=== PATIENT | male | born 1945 | race Caucasian/White ===

== ENCOUNTER 2020-07-19 10:10 | Emergency (ER) | payer MEDICARE, OTHER ==
[~2020-07-19] VITALS: Ht 180.3 cm; Wt 90.0 kg
[2020-07-19] MEDS ORDERED: HUMIRA40 MG/0.4 IJ (10:29)
[2020-07-19 12:25] VITALS: BP 125/77
== END 2020-07-19 12:25 | disposition home or self-care (01) ==
LOC: ED 10:10
DX: U07.1 COVID-19 (principal); K50.90 Crohn's disease, unspecified, without complications

== ENCOUNTER 2021-08-19 10:30 | Observation (INO) | payer MEDICARE, OTHER ==
[~2021-08-19] VITALS: Ht 172.7 cm; Wt 86.0 kg
[~2021-08-19 10:30] MED LIST: HUMIRA40 MG/0.4 IJ
--- NOTE | 2021-08-19 10:48 | NUR ---
PATIENT TO ROOM VIA WHEELCHAIR.
[2021-08-19] MEDS ORDERED: IRON325 M1 PO (11:10)
[2021-08-19] MEDS ORDERED: TAMSULOSIN0.4 MG PO (11:11)
[2021-08-19] MEDS ORDERED: OMEPRAZOLE20 MG PO (11:12)
[2021-08-19] MEDS ORDERED: PREDNISONE10 MG (11:17)
[2021-08-19 11:56] LABS: HEMATOCRIT 43.9 % (39.0-50.0); HEMOGLOBIN 14.1 g/dl (14.0-18.0); IMMATURE GRANULOCYTES 0.4 % (0.0-5.0); MEAN CELL VOLUME 86.6 fL CALC (80.0-100.0); MEAN CORPUSCULAR HGB 27.8 pG CALC (26.0-32.0); MEAN CORPUSCULAR HGB CONC 32.1 g/dL CAL (32.0-36.0); NEUT# 6.97 thou/uL (1.82-7.42); RED BLOOD COUNT 5.07 mill/uL (4.70-6.10)
[2021-08-19 12:29] LABS: ALBUMIN 3.4 g/dL (3.2-5.0); ALKALINE PHOSPHATASE 57 u/l (38-126); AMYLASE 38 u/l (30-110); ANION GAP 11 (6-22 (CALC)); BUN 23 mg/dL (8-23); BUN/CREATININE RATIO 19 (12-20 (CALC)); CARBON DIOXIDE 29 mmol/l (22-30); CHLORIDE 100 mmol/l (95-108); CREATININE 1.2 mg/dL (0.7-1.3); GFR 59 ML/MIN (>=60 (CALC)); GFR FOR AFR.AMER. > 60 ML/MIN (>=60 (CALC)); POTASSIUM 3.3 mmol/l (3.5-5.1); SGOT/AST 35 u/l (19-48); SODIUM 135 mmol/l (137-146); TOTAL PROTEIN 6.1 g/dL (6.3-8.2)
--- NOTE | 2021-08-19 19:15 | NUR ---
Admission Note Report Given to: RUPESH Transported by: Wheelchair X Stretcher Transported with: X Nurse Transporter X Patent IV [employer] Message Broker Developer Location: ICU X [facility]
--- NOTE | 2021-08-19 19:29 | NUR ---
PT TRANSPORTED OFF UNIT TO MED SURG BY HOSPITAL STAFF.
[2021-08-19 20:24] VITALS: BP 100/56
--- NOTE | 2021-08-19 20:30 | NUR ---
PATIENT ADMITTED FROM ER VIA WHEELCHAIR WITH ER STAFF IN ATTENDANCE. PATIENT IS AWAKE ALERT AND ORIENTED-ABLE TO TRANSFER FROM W/C TO BED. PATIENT IS ADMITTED FOR ABD PAIN, CROHNS FLARE, POSS. ILEUS, POSS SBO. PATIENT STATES LONG HX OF CROHNS. STATES THAT HE HAD SEVERAL LOOSE YELLOW BM'S AT HOME BEFORE COMING INTO THE ER TODAY. TELE MONITOR IN PLACE WITH READING SR-60'S. IV SITE TO RAC INTACT ND HEALTHY WITH GOOD BLOOD RETURN. IVF NS HUNG AND INFUSING AT 125CC/HR. CLEAR LIQUIDS ONLY AND NPO AFTER MN. ABD IS SOFT WITH ACTIVE BS. LUNGS ARE CLEAR. NO PERIPHERAL EDEMA NOTED AND PULSES ARE PALPABLE. ORIENTED PATIENT TO ROOM AND SURROUNDINGS. INSTRUCTED ON USE OF NURSE CALL LIGHT SYSTEM AND TV REMOTE. INSTRUCTED ON POC-IVF, ANTIBIOTICS, STEROIDS. SAFETY PRECAUTIONS REINFORCED. CALL LIGHT IN REACH. WILL CONT TO MONITOR.
--- NOTE | 2021-08-20 | NUR ---
RESTING IN BED AT THIS TIME-TELE MONITOR IN PLACE. IVF PATENT AND INFUSING ORDERED VIA RAC SITE AT 125CC/HR. NO COMPLAINTS AT THIS TIME. CALL LIGHT IN REACH. WILL CONT TO MONITOR.
[2021-08-20 00:58] VITALS: BP 105/56
--- NOTE | 2021-08-20 04:13 | NUR ---
PATIENT RESTING IN BED. LAB WORK BEING DRAWN. NEW BAG OF IVF HUNG AND INFUSING VIA RAC SITE. TELE MONITOR REMAINS IN PLACE. CALL LIGHT IN REACH. WILL CONT TO MONITOR.
[2021-08-20 04:20] VITALS: BP 114/61
[2021-08-20 05:48] LABS: MEAN CELL VOLUME 87.1 fL CALC (80.0-100.0); MEAN CORPUSCULAR HGB 28.1 pG CALC (26.0-32.0); MEAN CORPUSCULAR HGB CONC 32.2 g/dL CAL (32.0-36.0); RED BLOOD COUNT 4.2 mill/uL (4.70-6.10); RED CELL DISTRI WIDTH 14.3 % (11.5-15.5)
[2021-08-20 05:55] LABS: HEMATOCRIT 36.6 % (39.0-50.0); HEMOGLOBIN 11.8 g/dl (14.0-18.0)
[2021-08-20 06:06] LABS: BUN 20 mg/dL (8-23); BUN/CREATININE RATIO 20 (12-20 (CALC)); CARBON DIOXIDE 25 mmol/l (22-30); CHLORIDE 107 mmol/l (95-108); GFR > 60 ML/MIN (>=60 (CALC)); GFR FOR AFR.AMER. > 60 ML/MIN (>=60 (CALC)); MAGNESIUM 2.2 mg/dL (1.6-2.3); SODIUM 138 mmol/l (137-146)
[2021-08-20 06:08] LABS: ANION GAP 10 (6-22 (CALC))
--- NOTE | 2021-08-20 08:00 | NUR ---
ASSESSMETN AND VITALS ALLOWED AT THIS TIME. PT STATES HAING TO USE RESTROOM 6X THIS MORNING. STATES NO PAIN AT THIS TIME. IV 20 RAC FLUSHED WITH NO RESISTANCE. IVF INFUSING PER EMAR. FALL/SAFETY PRECAUTION IN PLACE. CALL LIGHT WITHIN REACH.
[2021-08-20] MEDS ORDERED: CIPROFLOXACN500 MG PO (09:45)
[2021-08-20] MEDS ORDERED: METRONIDAZOLE500 MG PO (09:46)
[2021-08-20] MEDS ORDERED: PREDNISONE10 MG PO (09:54)
--- NOTE | 2021-08-20 12:00 | NUR ---
PT RESTING IN EI BUSCH POSTION UPON ENTERING ROOM. STATES NO PAIN. IV PATENT INFUSING IVF WITH NO COMPLICATION. TELE MONITOR IN PLACE. FALL/SAFETY PRECAUTION IN PLACE. CALL LIGHT WITHIN REACH.
--- NOTE | 2021-08-20 12:38 | NUR ---
Discharge instructions given. Patient verbalizes understanding of same. Discharged in stable condition via Ambulatory to Home with staff. All belongings sent with pt. 20 RAC IV REMOVED. CATHETER FULLY INTACT. TELE MONITOR REMOVED. INSTRUCTINS AND BELONGINGS LEFT WITH PT.
== END 2021-08-20 12:38 | disposition home or self-care (01) ==
LOC: ED 10:30 → ED-I 15:10 → ED 15:17 → MS2 15:18
PROVIDERS: Emergency Medicine; Nurse Practitioner; ADMIT Internal Medicine; ATTEND Internal Medicine
DX: K50.018 Crohn's disease of small intestine with other complication (principal); I95.9 Hypotension, unspecified; K21.9 Gastro-esophageal reflux disease without esophagitis; N40.0 Benign prostatic hyperplasia without lower urinary tract symptoms; Z79.899 Other long term (current) drug therapy; Z20.822 Contact with and (suspected) exposure to COVID-19
CPT/HCPCS: J1650; Q9967; S0164